=== PATIENT | male | born 1960 | race Caucasian/White ===

== ENCOUNTER 2019-12-29 19:18 | Outpatient (REF) | payer MEDICARE, BC, SELFPAY ==
[2019-12-29 19:06] LABS: Anion Gap 6.1 mmol/L (3-11); BUN 22 mg/dL (7-18); CO2 28.9 mmol/L (21.0-32.0); CREATININE 1.06 mg/dL (0.70-1.30); Calcium 8.9 mg/dL (8.5-10.1); Calculated LDL 101 mg/dL (<100); Chloride 105 mmol/L (98-107); Cholesterol 187 mg/dL (<200); Glucose 98 mg/dL (74-106); HDL Cholesterol 65 mg/dL (40-60); Sodium 140 mmol/L (136-145); Triglyceride 108 mg/dL (<150)
[2020-01-01 12:53] LABS: PSA, Screening 1.2 ng/mL (0-4.5)
== END 2019-12-29 19:38 ==
LOC: NCHCN 19:18
PROVIDERS: Visit Provider Physician Assistant
DX: Z00.00 Encounter for general adult medical examination without abnormal findings (principal)
CPT/HCPCS: 80048; 80061; 84153

== ENCOUNTER 2021-06-24 04:17 | Emergency (ER) | payer MEDICARE, BC, SELFPAY ==
[2021-06-24 04:21] VITALS: BP 143/92; PULSE 78; RESP 18; TEMP 36.6; O2SAT 99
--- NOTE | 2021-06-24 04:30 | DI.CT_ITS ---
Exam(s) CT HEAD WO EXAM: CT HEAD WO CLINICAL HISTORY: right hand weakness. TECHNIQUE: Imaging Protocol: Axial computed tomography images with coronal and sagittal reformatted images were created and reviewed COMPARISON: No exams were available for comparison FINDINGS: Ventricles and Extra axial spaces: Normal in size and morphology for the patient's age. Hemorrhage: None. Cerebral parenchyma: Normal. Midline shift: None. Brainstem/Cerebellum: Normal. Calvarium: Normal. Visualized Paranasal sinuses/Mastoids: Clear. Soft Tissues: Unremarkable. IMPRESSION: No acute intracranial process. RADIATION DOSE DELIVERED: 806.31mGy.cm Total DLP DATA REPOSITORY: All CT scans at this facility are submitted to the National Radiology Data Registry (NRDR) Dose Index Registry (DIR) with the [employer] (ACR). RADIATION OPTIMIZATION: All CT scans at this facility use at least one of these dose optimization te chniques: automated exposure control; mA and/or kV adjustment per patient size (includes targeted exa ms where dose is matched to clinical indication); or iterative reconstruction.
--- NOTE | 2021-06-24 04:30 | RT.EKG_ITS ---
APPROVED REPORT Exam: Resting ECG Reason for Exam: ?tia Patient Location: E HR:92 bpm ECG Measurements Heart Rate 92 AXIS IA 170 P 69 QRSd 93 QRS -25 QT 359 T 28 QTc 446 Conclusion Sinus rhythm...normal P axis, V-rate 60- 99
--- NOTE | 2021-06-24 04:39 | W.ED.GENAD ---
Discharge Plan Disposition Patient Disposition: AGAINST MEDICAL ADVICE Condition: Stable Discharge Details Clinical Impression: Expressive aphasia, Right hand weakness Primary Care Provider: Unknown,Unknown ED Provider: Kamron William Discharge Instructions Additional Instructions: Your blood work and cat scan did not show significant abnormalities. Follow up with your primary care provider as soon as possible and discuss having brain MRI if you feel more ill, have worsening weakness or speech difficulties return to the emergency department Medical Decision Making 61 yo male with hx of parkinson's and states he sees neurology in [place] comes in with right arm numbness and weakness. HE has noted some numbness in his whole arm since yesterday and weakness in the right hand. HE woke up today and noticed he was having trouble brushing his teeth due to weakness holding the toothbrush which was abnormal for him. HE has intermittent tremors due to his parkinson's and has a tremor of his right arm now which he states usually is increased from anxiety which he is feeling now. He denies chest pain, dyspnea, fevers, falls. HE denies vision changes. He is intermittently having some word finding difficulty but is able to get what he is trying to say out eventually, and states this is not normal for him. He is caox4. He has no arm or leg drift, CN II-XII intact, perrl, strong finger advanced manufacturing associate. NIH of 1 due to mild aphasia. Concern for tia vs cva, symptoms since yesterday so not a lytic candidate or interventional candidate though based on symptoms would be small vessel cva unlikely large vessel. This could also be worsening of his parkinson's. Will obtain labs, ecg and head ct and reevaluate. labs and imaging unremarkable, exam unchanged, still has very mild expressive aphasia. Discussed results with patient and concern for tia and possible cva. I recommended admission for continued monitoring and MRI and further testing. HE unfortunately states his partner is getting a phone call around 130pm and it is related to oncology related illness and he doesn't want to miss this. He has capacity to make his own decisions and understands risks of leaving including worsening symptoms, permanent disability and and is willing to accept these risks. He is leaving against medical advise. He was strongly advised to follow up with his pcp amber and advised he can return if he changes his mind or if he has worsening symptoms Differential Diagnosis Differential Diagnosis: tia, cva, parkinson's Imaging Data Radiologic Study: Attestation: I personally reviewed and interpreted this imaging study as follows: Imaging: CT Scan Radiologist's impression: IMPRESSION: No acute intracranial abnormality. Lab Data Lab results reviewed: Yes I reviewed the patient's lab results. ECG Data Attestation: I personally reviewed and interpreted this ECG (s) as follows: Prior ECG tracings: not available for review Interpretation: sinus rhythm, rate of 92, no acute st t wave ischemic findings HPI General Mode of arrival: ambulatory. Date/Time Provider Initiated Documentation: 06/24/21 04:19. Limitations to Documentation: no limitations. Information obtained by: patient. History of Present Illness 61 year old M presents to the emergency department with the chief complaint of right hand weakness, described as moderate, Patient started experiencing this day(s) (1) and it has been constant. improves with No relieving factors improve symptom(s), No exacerbating factors reported . Patient did receive the following treatments prior to arrival, none Related Data Allergies Allergy/AdvReac Type Severity Reaction Status Date / Time No Known Allergies Allergy Unverified 06/24/21 04:29 General Stated Complaint: Orthopedic FIORELLA: 4 Review of Systems All systems reviewed & are unremarkable except as noted in HPI and below Constitutional Constitutional: Denies chills, Denies fever(s) and Denies weakness Eyes Eyes: Denies loss of vision Cardiovascular Cardiovascular: Denies chest pain and Denies dyspnea Respiratory Respiratory: Denies cough and Denies dyspnea Gastrointestinal Gastrointestinal: Denies abdominal pain, Denies nausea and Denies vomiting Genitourinary Genitourinary: Denies dysuria Musculoskeletal Musculoskeletal: Denies joint swelling Integumentary/Breasts Skin/Breast: Denies rash Neurologic Neurologic: Denies loss of vision and Denies weakness PFSH All Active Problems (Updated 06/24/21 @ 05:41 by Kamron William MD) Expressive aphasia (Acute) Right hand weakness (Acute) Social History Smoking/Tobacco Use Status: Never Smoking risk assessment performed?: Yes Alcohol Intake: never Drug use: Never Substance use type: does not use Do you feel safe at home: Yes Do you feel safe in your relationship?: Yes Exam Const General: anxious Orientation: alert and oriented x3 HENMT Head: normal to inspection Ears: external ears normal General nose exam: external nose normal Mouth: moist mucous membranes Eyes General: appearance normal, both eyes and all related structures Neck Neck: normal visual inspection Resp Effort & Inspection: normal respiratory effort and able to speak in complete sentences Cardio Rate: regular rate Skin General skin exam: no rashes or lesions noted Neuro General: patient alert and patient oriented x3 Extrem General: normal to inspection Psych Mental Status: mental status grossly normal Course Vital Signs Vital signs: Vital Signs Temperature 36.6 C 06/24/21 04:21 Pulse 78 06/24/21 04:21 Respiratory Rate 18 06/24/21 04:21 Blood Pressure 143/92 H 06/24/21 04:21 Pulse Oximetry 99 06/24/21 04:21 Temperature 36.6 C 06/24/21 04:21 Temperature Source Skin 06/24/21 04:21 Pulse 78 06/24/21 04:21 Respiratory Rate 18 06/24/21 04:21 Respiratory Effort 06/24/21 04:27 Blood Pressure 143/92 H 06/24/21 04:21 Blood Pressure Position Sitting 06/24/21 04:21 Pulse Oximetry 99 06/24/21 04:21 Oxygen Delivery Method Room Air 06/24/21 04:21 Oxygen Flow Rate 0 06/24/21 04:21 Pain Level 0 06/24/21 04:21
[2021-06-24 04:53] LABS: Absolute Basophil Count 0.03 10^3/uL (0.0-0.2); Absolute Eosinophil Count 0.05 10^3/uL (0.0-0.7); Absolute Lymphocyte Count 1.66 10^3/uL (1.2-3.4); Absolute Monocyte Count 0.37 10^3/uL (0.1-0.8); Absolute Neutrophil Count 2.27 10^3/uL (1.2-6.7); Basophils % 0.7; Eosinophils % 1.1; HCT 44.1 % (40.0-50.0); Lymphocytes % 37.9; MCH 29.8 pg (27.0-33.0); MCHC 31.7 % (32.0-36.0); MCV 94 fL (80-95); MPV 8.8 fL (8.0-11.0); Monocytes % 8.4; Neutrophils % 51.9; Platelet Count 185 10^3/uL (130-400); RDW 11.9 % (11.8-14.1); RDW-SD 41.2 fL; WBC 4.38 10^3/uL (4.4-10.8)
[2021-06-24 05:11] LABS: ALT 9 U/L (16-63); AST 16 U/L (15-37); Alkaline Phosphatase 92 U/L (46-116); Anion Gap 7.3 mmol/L (3-11); BUN 22 mg/dL (7-18); Bilirubin, Total 0.6 mg/dL (0.2-1.0); CO2 27.7 mmol/L (21.0-32.0); Calcium 8.9 mg/dL (8.5-10.1); Chloride 106 mmol/L (98-107); Glucose 107 mg/dL (74-106); Magnesium 2.4 mg/dL (1.8-2.4); Potassium 3.8 mmol/L (3.5-5.1); Sodium 141 mmol/L (136-145); Total Protein 7.5 g/dL (6.4-8.2); Troponin I < 50 ng/L (<or=60)
--- NOTE | 2021-06-24 05:23 | DI.VRAD_ITS ---
PROCEDURE INFORMATION: Exam: CT Head Without Contrast Exam date and time: 06/24/2021 5:11 AM Age: 61 years old Clinical indication: Weakness, extremity; Right; Additional info: Right hand weakness TECHNIQUE: Imaging protocol: Computed tomography of the head without contrast. Radiation optimization: All CT scans at this facility use at least one of these dose optimization techniques: automated exposure control; mA and/or kV adjustment per patient size (includes targeted exams where dose is matched to clinical indication); or iterative reconstruction. Other technique: STROKE PROTOCOL was implemented. COMPARISON: No relevant prior studies available. FINDINGS: Brain: No acute hemorrhage identified. No large territorial areas of hypoattenuation concerning for ischemic infarct identified. No intracranial mass effect. Cerebral ventricles: The ventricles are within normal limits. Paranasal sinuses: The visualized sinuses are unremarkable. Mastoid air cells: The visualized mastoid air cells are well aerated. Bones/joints: The osseous structures are intact. Soft tissues: Unremarkable. IMPRESSION: No acute intracranial abnormality. ASSESSMENT: ASPECTS (Aisha Stroke Program Early CT Score) is 10. Dictated and Authenticated by: Jaime Fink MD. Ordering:PURA Lundy MD
== END 2021-06-24 09:49 | disposition left against medical advice (07) ==
PROVIDERS: Emergency Provider Emergency Medicine
DX: R47.01 Aphasia (principal); R53.1 Weakness; R20.0 Anesthesia of skin; G20 Parkinson's disease; Z53.29 Procedure and treatment not carried out because of patient's decision for other reasons
CPT/HCPCS: 36415; 80053; 93005; 99284; 70450; 83735; 84484; 85025; 93010

== ENCOUNTER 2021-06-24 07:02 | Emergency (ER) | payer MEDICARE, BC, SELFPAY ==
[2021-06-24] VITALS (29 sets, daily range): BP systolic 127–155; BP diastolic 82–94; PULSE 92–129; RESP 12–22; TEMP 36.6; O2SAT 94–98
--- NOTE | 2021-06-24 07:09 | ED.GENADUL_ITS ---
Discharge Plan Disposition Patient Disposition: STILL A PATIENT Condition: Stable Discharge Details Clinical Impression: Expressive aphasia, Right hand weakness Primary Care Provider: Unknown,Unknown ED Provider: Kamron William Medical Decision Making 61 yo male with hx of parkinson's who left [facility] earlier this morning after being seen for expressive aphasia comes in with worsening aphasia and now has right sided facial droop and right leg/arm weakness. [place] today he noted difficulty holding his toothbrush when he woke up and numbness in his arm since yesterday. HE had no deficits to sensation on exam earlier and strength in hands were actually normal and had no drift and he was noted to have expressive aphasia that was mild. He had labs and ct head that were unremarkable and he then left [facility] rather than be admitted for MRI. HE returns because his speech is now slurred and he has right sided weakness. He is noted to have expressive aphasia with slurred speech but is able to answer questions a few words at a time, caox4. He has an nih on my initial exam ( 1 for dysarthria, 1 aphasia, 1 drift right leg, 1 drift right arm, 2 lower facial paralysis). He had subjective numbness since yesterday and woke up with the expressive aphasia and noted difficulties holding his toothbrush earlier today so is not a lytic candidate. He just had lytes and cbc that were unremarkable, will obtain CTA of the neck and head to evaluate for possible large vessel occlusion. Differential Diagnosis Differential Diagnosis: cva, tia ECG Data Attestation: I personally reviewed and interpreted this ECG (s) as follows: Prior ECG tracings: available for review Interpretation: sinus tachycardia, rate 102, no acute st t wave ischemic findings HPI General Date/Time Provider Initiated Documentation: 06/24/21 07:04 . Limitations to Documentation: other (speech difficulty) . Information obtained by: patient . History of Present Illness 61 year old M presents to the emergency department with the chief complaint of stroke symptoms, described as moderate, Patient started experiencing this day(s) (1) and it has been constant. improves with No relieving factors improve symptom(s), No exacerbating factors reported . Patient did receive the following treatments prior to arrival, none Related Data Allergies Allergy/AdvReac Type Severity Reaction Status Date / Time No Known Allergies Allergy Unverified 06/24/21 04:29 General FIORELLA: 4 Review of Systems All systems reviewed & are unremarkable except as noted in HPI and below Constitutional Constitutional: Denies chills, Denies fever(s) and Denies weakness Eyes Eyes: Denies loss of vision ENT Ears, Nose, Mouth, and Throat: Denies change in voice Cardiovascular Cardiovascular: Denies chest pain and Denies dyspnea Respiratory Respiratory: Denies cough and Denies dyspnea Gastrointestinal Gastrointestinal: Denies abdominal pain and Denies vomiting Musculoskeletal Musculoskeletal: Denies joint swelling Integumentary/Breasts Skin/Breast: Denies rash Neurologic Neurologic: Denies loss of vision and Denies weakness PFSH All Active Problems (Updated 06/24/21 @ 07:16 by Kamron William MD) Expressive aphasia (Acute) Right hand weakness (Acute) Social History Smoking/Tobacco Use Status: Never Smoking risk assessment performed?: Yes Alcohol Intake: never Drug use: Never Substance use type: does not use Do you feel safe at home: Yes Do you feel safe in your relationship?: Yes Exam Const General: no acute distress Orientation: alert HENMT Head: normal to inspection Ears: external ears normal General nose exam: external nose normal Mouth: moist mucous membranes Eyes General: appearance normal, both eyes and all related structures Neck Neck: normal visual inspection Resp Effort & Inspection: normal respiratory effort and able to speak in complete sentences Cardio Rate: regular rate Skin General skin exam: no rashes or lesions noted Neuro General: patient alert and patient oriented x3 Extrem General: normal to inspection Sign Out Sign Out Data: Sign Out Comment: hx of parkinson's (neurologist in [place]) seen earlier for expressive aphasia and right hand weakness upon awakening and arm numbness since yesterday. CT head/labs unremarkable, left [facility] rather than be admitted for obs and mri. Returns for worsening speech. Still has expressive aphasia but more slurred and now has mild drift in his right arm and leg. Pending cta head/neck, will likely need admission if no interventional lesions on cta Last updated by Kamron William MD at 06/24/21 07:19
--- NOTE | 2021-06-24 07:15 | RT.EKG_ITS ---
APPROVED REPORT Exam: Resting ECG Reason for Exam: tachycardia Patient Location: E HR:102 bpm ECG Measurements Heart Rate 102 AXIS WA 173 P 59 QRSd 95 QRS -22 QT 352 T 3 QTc 459 Conclusion Sinus tachycardia...rate> 99
--- NOTE | 2021-06-24 07:15 | DI.CT_ITS ---
Exam(s) CT BRAIN NECK CTA EXAM: CT BRAIN NECK CTA CLINICAL HISTORY: stroke symptoms. TECHNIQUE: Imaging Protocol: Axial CT angiography was performed with multi-slice acquisition and mu lti-planar and 3D reconstructions. CONTRAST MATERIAL: Intravenous: Omnipaque 350 Contrast volume:85 ml COMPARISON: CT CT HEAD WO from 06/24/2021 FINDINGS: CT Head W/O and W contrast: Ventricles and Extra axial spaces: Normal in size and morphology for the patient's age. Hemorrhage: None. Cerebral parenchyma: Normal. Midline shift: None. Brainstem/Cerebellum: Normal. Calvarium: Normal. Visualized Paranasal sinuses/Mastoids: Clear. Soft Tissues: Unremarkable. Enhancement: Normal. CTA Brain W: Internal Carotid Arteries: Petrous: Normal. Cavernous: Normal. Cerebral: Normal. Middle Cerebral Arteries: Right: No aneurysm, occlusion or significant stenosis. Left: No aneurysm,. Question of occlusion versus artifact of the superior branch of the M2 segment over a 6 millimeter length. Vessel reconstituted distally. Anterior Cerebral Arteries: Right: No aneurysm, occlusion or significant stenosis. Left: No aneurysm, occlusion or significant stenosis. Posterior cerebral Arteries: Right: No aneurysm, occlusion or significant stenosis. Left: No aneurysm, occlusion or significant stenosis. Vertebral Arteries: Right: No aneurysm, occlusion or significant stenosis. Left: No aneurysm, occlusion or significant stenosis. Basilar Artery: No aneurysm, occlusion or significant stenosis. CTA Neck W: Common Carotid: Right: No aneurysm, occlusion or significant stenosis. Left: No aneurysm, occlusion or significant stenosis. External Carotid: Right: No aneurysm, occlusion or significant stenosis. Left: No aneurysm, occlusion or significant stenosis. Internal Carotid: Right: No aneurysm, occlusion or significant stenosis. Left: Severe stenosis secondary to mainly soft plaque involving the proximal left internal carotid a rtery over a 3 centimeter length. No aneurysm, or dissection.. Vertebral Artery: Right: No aneurysm, occlusion or significant stenosis. Left: No aneurysm, occlusion or significant stenosis. Lung Apices: Normal. Bones: Normal. Soft Tissues: Normal. IMPRESSION: 1. Focal occluded segment of the superior branch of the M2 segment left middle cerebral artery. Sylwia ining vessels intact. 2. Unremarkable CT Head. No infarct visible at this time. 3. Severe stenosis of the left internal carotid artery over 3 centimeter length. Remaining vessels i ntact. RADIATION DOSE DELIVERED: 1,202.9mGy.cm Total DLP DATA REPOSITORY: All CT scans at this facility are submitted to the National Radiology Data Registry (NRDR) Dose Index Registry (DIR) with the [employer] (ACR). RADIATION OPTIMIZATION: All CT scans at this facility use at least one of these dose optimization te chniques: automated exposure control; mA and/or kV adjustment per patient size (includes targeted exa ms where dose is matched to clinical indication); or iterative reconstruction.
[2021-06-24 07:36] LABS: INR 1.1 (0.9-1.1); PTT Activated 24.5 sec (21.0-27.5)
[2021-06-24] MEDS: Omnipaque 350 MG/ML 100 ML BTL IJ (07:48)
--- NOTE | 2021-06-24 08:24 | DI.VRAD_ITS ---
Addendum created by Huey Noriega MD on 06/24/2021 8:28:03 AM EDT: THIS REPORT CONTAINS FINDINGS THAT MAY BE CRITICAL TO PATIENT CARE. The findings were verbally communicated via telephone conference with Dr. Izaguirre at 8:27 AM EDT on 06/24/2021. The findings were acknowledged and understood. Initial report created on 06/24/2021 8:24:17 AM EDT: PROCEDURE INFORMATION: Exam: CT Angiography Head With Contrast, Arteriography Exam date and time: 06/24/2021 7:22 AM Age: 61 years old Clinical indication: Speech disturbance; Slurred speech; Patient HX: Stroke symptoms TECHNIQUE: Imaging protocol: Computed tomography angiography of the head with contrast. Exam focused on the arteries. 3D rendering (Not supervised by radiologist): MIP and/or 3D reconstructed images were created by the technologist. COMPARISON: CT HEAD WO 06/24/2021 5:11 AM FINDINGS: ANTERIOR CIRCULATION: Right internal carotid artery: Unremarkable. Intracranial segment is patent with no significant stenosis. No aneurysm. Right middle cerebral artery: Unremarkable. No occlusion or significant stenosis. No aneurysm. Right anterior cerebral artery: Unremarkable. No occlusion or significant stenosis. No aneurysm. Left internal carotid artery: Unremarkable. Intracranial segment is patent with no significant stenosis. No aneurysm. Left middle cerebral artery: There is a 6 mm long occluded segment in the superior branch of the M2 segment of the left middle cerebral artery. The distal vessels reconstitute via collaterals. No aneurysm. Left anterior cerebral artery: Unremarkable. No occlusion or significant stenosis. No aneurysm. POSTERIOR CIRCULATION: Right vertebral artery: Unremarkable. No occlusion or significant stenosis. No aneurysm. Left vertebral artery: Unremarkable. No occlusion or significant stenosis. No aneurysm. Basilar artery: Unremarkable. No occlusion or significant stenosis. No aneurysm. Right posterior cerebral artery: Unremarkable. No occlusion or significant stenosis. No aneurysm. Left posterior cerebral artery: Unremarkable. No occlusion or significant stenosis. No aneurysm. Brain: No definite mass, mass effect, or midline shift. Generalized chronic atrophy. Cerebral ventricles: No ventriculomegaly. Bones/joints: Unremarkable. No acute fracture. Soft tissues: Unremarkable. IMPRESSION: There is a 6 mm long occluded segment of the superior branch of the M2 segment of the left middle cerebral artery. PROCEDURE INFORMATION: Exam: CT Angiography Neck With Contrast Exam date and time: 06/24/2021 7:22 AM Age: 61 years old Clinical indication: Speech disturbance; Slurred speech; Patient HX: Stroke symptoms TECHNIQUE: Imaging protocol: Computed tomography angiography of the neck with contrast. 3D rendering (Not supervised by radiologist): MIP and/or 3D reconstructed images were created by the technologist. COMPARISON: CT HEAD WO 06/24/2021 5:11 AM FINDINGS: Right common carotid artery: No stenosis. No dissection or occlusion. Right internal carotid artery: No stenosis of the extracranial segment. No dissection or occlusion. Right external carotid artery: No occlusion or stenosis of the origin. Left common carotid artery: No stenosis. No dissection or occlusion. Left internal carotid artery: There is severe stenosis of the left internal carotid artery beginning about 3 cm above its origin and extending about 3 cm in length. Left external carotid artery: No occlusion or stenosis of the origin. Right vertebral artery: No stenosis. No dissection or occlusion. Left vertebral artery: No stenosis. No dissection or occlusion. Soft tissues: Normal. No significant soft tissue swelling. Bones/joints: No acute fracture. IMPRESSION: Severe stenosis of the left internal carotid artery. REFERENCES: NASCET CRITERIA. The degree of internal carotid artery stenosis is based on NASCET criteria. Normal is no stenosis. Mild is less than 50% stenosis. Moderate is 50-69% stenosis. Severe is 70% to 99% stenosis. Total occlusion is no detectable patent lumen. Dictated and Authenticated by: Huey Noriega MD. Ordering:PURA Lundy MD
--- NOTE | 2021-06-24 09:31 | W.EDPROG ---
Date of service: 06/24/21 Time of Service: 09:31 Medical Decision Making 61-year-old male history of Parkinson's, was seen last night for possible TIA left AGAINST MEDICAL ADVICE, returned this morning with worsening symptoms including right upper and right lower extremity weakness, facial droop and expressive aphasia initial NIH stroke scale approximately 6, CT CTA head neck was performed, showing M2 occlusion left MCA as well as high-grade stenosis of internal carotid on the left. Patient symptomatology has slowly improved still has persistent mild dysarthria and facial droop NIH approximately 4. No anticoagulation. Symptoms initially started yesterday morning around 8 AM but got worse acutely this morning. Spoke with Dr. Prince of interventional neurology at [facility] who is excepting patient emergency department to emergency department for consideration for intervention. She recommended administering aspirin 300 mg, patient did not pass rudimentary bedside swallow as he was drooling and choking, will give per rectum. Sign Out Sign Out Data: Sign Out Comment: hx of parkinson's (neurologist in [place]) seen earlier for expressive aphasia and right hand weakness upon awakening and arm numbness since yesterday. CT head/labs unremarkable, left ama rather than be admitted for obs and mri. Returns for worsening speech. Still has expressive aphasia but more slurred and now has mild drift in his right arm and leg. Pending cta head/neck, will likely need admission if no interventional lesions on cta Last updated by Kamron William MD at 06/24/21 07:19 Discharge Plan Disposition Patient Disposition: [facility] Condition: Stable Discharge Details Clinical Impression: Expressive aphasia, Right hand weakness, Acute ischemic left MCA stroke, Carotid artery stenosis Primary Care Provider: Unknown,Unknown ED Provider: Sal Izaguirre Home Meds and New Rx's Prescriptions: No Action carbidopa-levodopa [Sinemet CR] 50-200 mg Tablet Extended Release 2 tab PO QID 0RF temazepam 30 mg Capsule 35 mg PO DAILY 0RF trazodone 150 mg Tablet 150 mg PO HS 0RF multivitamin Capsule 1 cap PO DAILY 0RF Systane (propylene glycol) 0.4-0.3 % Drops 1 drp ophthalmic (eye) PRN PRN0RF gabapentin 100 mg Tablet 200 mg PO HS 0RF melatonin 10 mg Tablet 10 mg PO HS 0RF
[2021-06-24] MEDS: Aspirin 300 MG SUPP PR (09:45)
== END 2021-06-24 09:47 | disposition short-term general hospital (02) ==
PROVIDERS: Emergency Medicine; Emergency Provider Emergency Medicine
DX: I63.512 Cerebral infarction due to unspecified occlusion or stenosis of left middle cerebral artery (principal); R47.01 Aphasia; R29.810 Facial weakness; G83.21 Monoplegia of upper limb affecting right dominant side; I65.22 Occlusion and stenosis of left carotid artery
CPT/HCPCS: 36415; 70496; 70498; 80053; 93005; 99284; 99285; 70450; 83735; 84484; 85025; 85610; 85730; 93010; J3490

== ENCOUNTER 2021-09-13 16:10 | Outpatient (CLI) | payer MEDICARE, BC, SELFPAY | END 2021-09-13 16:11 | disposition home or self-care (01) | LOC: LBO 16:16 | PROVIDERS: PCP Physician Assistant; Visit Provider Speech-Language Pathologist ==

== ENCOUNTER 2021-09-26 15:48 | Outpatient (REF) | payer MEDICARE, BC, SELFPAY ==
[2021-09-26 12:52] LABS: Source Nasal/Nares
[2021-09-26 15:41] LABS: COVID-19 PCR Negative (Negative)
== END 2021-09-26 15:49 | disposition home or self-care (01) ==
LOC: LBN 15:48
PROVIDERS: PCP Physician Assistant; Visit Provider Family Medicine
DX: Z20.822 Contact with and (suspected) exposure to COVID-19 (principal); Z01.818 Encounter for other preprocedural examination
CPT/HCPCS: 87635

== ENCOUNTER → 2021-09-27 02:17 | Outpatient (CLI) | payer MEDICARE, BC, SELFPAY ==
--- NOTE | 2021-09-27 10:30 | DI.RAD_ITS ---
Exam(s) RF MODIFIED SPEECH BA SWALLOW TECHNIQUE: Modified barium swallow was performed in conjunction with speech pathology. CONTRAST MATERIAL: Oral barium contrast was administered. COMPARISON: No exams were available for comparison FINDINGS: Note that this is not a dedicated esophagram, distal esophagus not evaluated. There is no evidence of aspiration or penetration of thick or thin liquids, pudding or barium coated cookies. Speech pathology report to follow. There was no aspiration exhibited during the examination . The barium tablet passed into the stomach. IMPRESSION: No evidence of aspiration. RADIATION DOSE DELIVERED: vinny Veliz=15.2 mGy
--- NOTE | 2021-09-27 10:33 | ST.MBS_ITS ---
Date of Service Date of service: 09/27/21 Time of Service: 10:33 Modified Barium Swallow Study Findings: Video fluoroscopic Swallowing Evaluation (VFSE) / Modified Barium Swallow Study (MBSS) Speech Language Pathology Report Patient referred for VFSE/MBSS from Dr. Renner given reported difficulties with swallowing secondary to recent L hemisphere stroke as well as established diagnosis of Parkinson's Disease without prior baseline MBSS established. HPI & Patient report of function: Patient is a 61 year old M with recent L hemisphere stroke and Parkinson's disease, seen by [facility] primarily for short course of therapy to address communication, though also reporting swallowing changes which have improved significantly since acute phase of recovery. He complains primarily of sensation of pharyngeal stasis especially to dry/dense foods as well as lightweight solids such as lettuce. See prior [facility] notes for more information. PMHx: Expressive aphasia, Parkinson?s Disease, R hand weakness. IMPRESSIONS: Swallow safety is preserved; swallow efficiency is impaired. Overall swallow function appears safe with mild oropharyngeal dysphagia. Characterized primarily by reduced epiglottic inversion across textures/consistencies resulting in moderate vallecular residue after the swallow, as well as difficulty with a/p transit of barium tablet (difficulty not replicated with other textures). Initiation is timely, no tongue pumping observed. ? Patient appears to be at low risk for potential aspiration PNA and/or pulmonary compromise and low risk for malnutrition, low risk for dehydration. Diet modification is not indicated except per patient tolerance; non-oral nutrition is not indicated. Swallow prognosis is fair. Positive prognostic factors: Age, Severity, Time since onset (relative to CVA), Motivation, Family/caregiver support, Cognitive status, Effectiveness of trialed compensatory strategies, Baseline strategy use Negative prognostic factors: Surgical/anatomical factors (size/reduced motility of epiglottis - normal variation), progressive nature of Parkinson's disease Recommended strategies were provided today as below. Further behavioral swallow rehabilitation not warranted at this time. ? ? RECOMMENDATIONS: Diet Texture Recommendation:? IDDSI LEVEL SOLIDS 7-Regular Solids or TOLERATED LIQUIDS 0-Thin Liquids MEDICATIONS Whole with 0-Thin Liquids or 4-Puree Diet texture modification is per patient's preference; please adjust diet textures at patient's discretion & collaboration with care team. Do not alter medications (e.g., cut)? without advice from your MD or pharmacist. Risk Management Strategies:? Behavioral reflux precautions, including upright position during + 90 mins after meals. Small bites, approx [id number] Small, single sips, approx 10 mL (or 1 tsp) Alternate solids/liquids as able Multiple swallows per bolus to encourage clearance of pharyngeal stasis/residue Control risk factors for aspiration pneumonia via (a) thorough oral hygiene & (b) maintaining physical mobility as tolerated PLAN: Therapy/goals: n/a at this time - patient is welcome to return if additional concerns are identified before next exam. Follow-up exam: Recommend repeat VFSE/MBSS every 6-12 months to monitor for progression and provide updated recommendations in context of Parkinson's Disease. ----- OBJECTIVE Videofluoroscopic Swallow Evaluation (VFSE/MBSS) was conducted in the lateral[ and [id number]] projection by Speech-Language Pathologist, in collaboration with Radiologist, to evaluate oropharyngeal swallow function. Anatomic view under fluoroscopy: WFL, though with mild large epiglottis relative to other structures (normal variation) PO Barium Contrast Trials Oral barium water-soluble contrast was administered as follows: IDDSI Level 0 Varibar thin liquid (40% w/v) IDDSI Level 4 Varibar pudding/pureed/extremely thick (40% w/v) IDDSI Level 7 Regular Solid: 1/2 joseph cracker coated in 3 mL Varibar pudding 13 mm barium tablet taken with Thin Liquids. MBSImP Component Scores: COMPONENT Scale SCORE 1 Lip closure (0-4) 0 Resulted in no labial escape 2 Hold Position (0-3) 0 Maintained a cohesive bolus between tongue to palatal seal 3 Bolus Preparation (0-4) 0 Resulted in timely and efficient chewing and mashi ng 4 Bolus TransportA (0-4) 1 Demonstrated delayed initiation of tongue motion (mild) 5 Oral Residue (0-4) 1 Was a trace, lining oral structures 6 Swallow Initiation (0-4) 0 Occurred as bolus head at posterior angle of the mandibular ramus 7 Soft Palate Elevation (0-4) 0 Resulted in no bolus between soft palate and t he pharyngeal wall 8 Laryngeal Elevation (0-3) 0 Demonstrated complete superior movement of thyro id cartilage with complete approximation of arytenoids to epiglottic petiole 9 Anterior Hyoid Motion (0-2) 0 Demonstrated complete anterior movement 10 Epiglottic Movement (0-2) 2 Resulted in no inversion 11 Laryngeal Closure (0-2) 0 Was complete with no air or contrast in laryngeal vestibule 12 Pharyngeal Stripping Wave (0-2) 1 Was present, but diminished 13 Pharyngeal Contraction (0-3) NA Did not test 14 PES Opening (0-3) 0 Was completely distended and complete duration with no obstruction of flow 15 Tongue Base Retraction (0-4) 1 Allowed a trace column of contrast or air between tongue base and pharyngeal wall 16 Pharyngeal Residue (0-4) 2 Was a collection of residue within or on pharyngeal structures 17 Esophageal Clearance (0-4) NA Did not test Additional observations: Patient requires secondary sip of liquid to facilitate A/P transit if barium tablet. Some slowing of tablet flow at level of valleculae due to reduced epiglottic motility, but ultimately passed beyond pharynx without need for secondary swallow or liquid wash. Results: COMPONENT Scale SCORE A 1 Oral Score (0-18) 1 2 Pharyngeal Score (0-29) 5 3 Esophageal Score (0-4) 0 Dysphagia Outcome and Severity Scale: COMPONENT Scale SCORE 1 LEVEL (1-7) 6 Full PO: Normal Diet - Within functional limits/modified independence Penetration-Aspiration Scale: COMPONENT Scale SCORE 1 Thin liquid (1-8) 1 Contrast did not enter the airway 2 [place] thick (1-8) NA Not administered 3 Honey thick (1-8) NA Not administered 4 Pudding thick (1-8) 1 Contrast did not enter the airway 5 Cookie (1-8) 1 Contrast did not enter the airway Strategies & Outcomes Strategies Successful (+) Unsuccessful (-) Delivery/Alternating Consistencies ? Follow with Liquid Wash + (to clear tablet from oral cavity) ? Follow with Solid Bolus? not trialed Delivery/Via Straw? ? not trialed Reduced Volume? ? + (to reduce vallecular residue) Reduced Rate of Intake? ? + (to reduce vallecular residue) Increased Viscosity? ? n/a Other:?Secondary/Saliva swallow ? ? + (to reduce vallecular residue) Thank you for allowing us to take part in this patient's care. Please feel free to contact the [facility] Speech Language Pathology Department with any questions/concerns. Coding CPT Codes MOTION FLUOROSCOPY/SWALLOW - [id number] ([id number])
[2021-09-27] MEDS: Barium Sulfate 81% w/w for Oral Suspension 148 GM BTL PO (11:22)
[2021-09-27] MEDS: Barium Sulfate 40% W/V 240 ML BTL PO (11:23)
[2021-09-27] MEDS: Barium Sulfate Oral Paste 40% W/V 230 ML TUBE PO (11:24)
[2021-09-27] MEDS: Barium Sulfate 700 MG TAB PO (11:25)
== END ==
PROVIDERS: PCP Physician Assistant; Visit Provider Physician Assistant
DX: R13.10 Dysphagia, unspecified (principal)
CPT/HCPCS: 92611; 74221

== ENCOUNTER 2024-02-13 11:38 | Outpatient (REF) | payer MEDICARE, BC, SELFPAY ==
[2024-02-13 14:16] LABS: HCT 43.2 % (40.0-50.0); HGB 14.4 g/dL (13.5-17.5); MCH 30.7 pg (27.0-33.0); MCHC 33.3 % (32.0-36.0); MCV 92 fL (80-95); MPV 9.3 fL (8.0-11.0); Platelet Count 187 10^3/uL (130-400); RBC 4.69 10^6/uL (4.36-5.78); RDW 11.9 % (11.8-14.1); RDW-SD 40.5 fL; WBC 5.41 10^3/uL (4.4-10.8)
[2024-02-13 14:25] LABS: Anion Gap 10.8 mmol/L (3-11); BUN 26 mg/dL (7-18); CO2 25.2 mmol/L (21.0-32.0); Calcium 8.8 mg/dL (8.5-10.1); Calculated LDL 103 mg/dL (<100); Chloride 104 mmol/L (98-107); Cholesterol 188 mg/dL (<200); Estimated GFR 83.01 (mL/min/1.73m2); Glucose 84 mg/dL (74-106); HDL Cholesterol 73 mg/dL (40-60); Sodium 140 mmol/L (136-145); Triglyceride 61 mg/dL (<150)
[2024-02-13 14:39] LABS: Hemoglobin A1C 5.1 % (<5.7)
[2024-02-13 22:18] LABS: PSA, Screening 1.7 ng/mL (<=4.5)
== END 2024-02-13 11:39 | disposition home or self-care (01) ==
LOC: NCHCN 11:38
PROVIDERS: PCP Physician Assistant; Visit Provider Physician Assistant
DX: Z00.00 Encounter for general adult medical examination without abnormal findings (principal); Z13.1 Encounter for screening for diabetes mellitus; Z12.5 Encounter for screening for malignant neoplasm of prostate
CPT/HCPCS: 80048; 80061; 84153; 85027; 83036